=== PATIENT | male | born 1960 | race Caucasian/White ===

== ENCOUNTER → 2018-02-02 14:39 | Outpatient (CLI) | payer BC, SELFPAY ==
--- NOTE | 2018-02-02 14:45 | RAD_ITS ---
STUDY: X-RAY CHEST REASON FOR EXAM: Male, 57 years old. Cough TECHNIQUE: Frontal and lateral views of the chest. COMPARISON: None. FINDINGS: The lungs are clear and expanded. There is no demonstrated pleural abnormality. Normal size heart. Normal mediastinum and viral. Normal visualized pulmonary arteries. Normal visualized aortic arch and descending thoracic aorta. Normal visualized thoracic spine. Normal visualized ribs, clavicles, and shoulders. There is no demonstrated abnormality of the visualized soft tissue structures of the upper abdomen. RAD/Chest PA and Lateral IMPRESSION: Normal x-ray examination of the chest. Electronically Signed: Munir Hernandez MD at 16:50 EDT , Service support ,
== END ==
LOC: HPRAD 14:45
PROVIDERS: Family Provider Internal Medicine; PCP Internal Medicine; Visit Provider Nurse Practitioner Gerontology
DX: R05 Cough (principal)
CPT/HCPCS: 71046